=== PATIENT | female | born 1950 | race Caucasian/White ===

== ENCOUNTER 2018-03-23 09:54 | Day surgery (SDC) | payer MEDICARE, BC ==
[2018-03-23] MEDS: PHENYLEPHRINE 2.5% OPHTH SOL 2ML OS (07:00)
[2018-03-23] MEDS: OFLOXACIN 0.3 % (OCUFLOX) OPTH SOL 5ML OS (10:49)
[2018-03-23] MEDS: TROPICAMIDE 1% OPHTH SOLN 2ML OS (10:50)
[2018-03-23] MEDS: PROPARACAINE 0.5% OPHTH SOL 15ML OS (10:50)
[2018-03-23] MEDS ORDERED: MIDAZOLAM INJ 2 MG/2 ML VIAL (J2250) As Ordered (12:14)
[2018-03-23] MEDS ORDERED: fentaNYL 100 MCG/2 ML INJECTION (J3010) As Ordered (12:15)
[2018-03-23] MEDS: POVIDONE-IODINE 5% OPHTH PREP SOL 30ML As Ordered (12:36)
[2018-03-23] MEDS: LIDOCAINE 0.75%/EPINEPHRINE 0.025% IN BSS 1ML SYR INTRACAMERAL (OR ONLY) As Ordered (12:41)
[2018-03-23] MEDS: CEFUROXIME 1MG/0.1ML INTRACAMERAL INJ As Ordered (12:41)
[2018-03-23] MEDS: DUOVISC (0.50ML VISCOAT/0.55ML PROVISC) OPHTH KIT As Ordered (12:41)
[2018-03-23] MEDS: BALANCED SALT IRRIGATION SOLUTION 500ML BAG (FOR OR EYE MACHINE) As Ordered (12:41)
== END 2018-03-23 13:40 | disposition home or self-care (01) ==
LOC: M SDC 09:54
DX: H25.12 Age-related nuclear cataract, left eye (principal); E03.9 Hypothyroidism, unspecified; I89.0 Lymphedema, not elsewhere classified; Z79.899 Other long term (current) drug therapy; Z78.0 Asymptomatic menopausal state
CPT/HCPCS: 66984